=== PATIENT | male | born 1990 | race Caucasian/White ===

== ENCOUNTER 2016-12-05 18:14 | Emergency (ER) | payer SELFPAY ==
[2016-12-05 23:00] LABS: Basophils % (Auto) 0.9 % (0.0-1.8); Eosinophils % (Auto) 4.5 % (0.0-4.3); Hematocrit 49.5 % (35.5-45.6); Hemoglobin 16.1 gm/dl (11.8-15.2); Mean Corpuscular HGB Conc 33 % (32-34); Mean Corpuscular Hemoglobin 29 pg (28-32); Mean Corpuscular Volume 90 fl (84-94); Platelet Count 191 K/mm3 (140-440); Red Blood Count 5.52 M/mm3 (3.65-5.03); Red Cell Distribution Width 12.6 % (13.2-15.2); White Blood Count 5.9 K/mm3 (4.5-11.0)
[2016-12-05 23:11] LABS: Anion Gap 15 mmol/L; Blood Urea Nitrogen 17 mg/dL (9-20); Calcium 9.3 mg/dL (8.4-10.2); Carbon Dioxide 29 mmol/L (22-30); Chloride 99.6 mmol/L (98-107); Glucose 88 mg/dL (75-100); Potassium 4.6 mmol/L (3.6-5.0); Sodium 139 mmol/L (137-145)
[2016-12-05] MEDS ORDERED: NACL 0.9% 1000 ML 1,000 ML IV ONE (23:18)
[2016-12-06] MEDS ORDERED: NACL 0.9% 1000 ML 1,000 ML IV ONE (00:16)
[2016-12-06 01:04] LABS: Bilirubin,Urine NEG (Negative); Blood,Urine SM (Negative); Ketones,Urine NEG (Negative); Leukocyte Esterase,Urine NEG (Negative); Nitrite,Urine NEG (Negative); Protein,Urine <15 mg/dL mg/dL (Negative)
--- NOTE | 2016-12-06 01:40 | Emergency Department Report ---
- General Chief Complaint: Upper Respiratory Infection Stated Complaint: FLU LIKE SYMPTOMS Time Seen by Provider: 12/05/16 22:19 Source: patient Mode of arrival: Ambulatory Limitations: No Limitations - History of Present Illness Initial Comments: 26-year-old male past medical history none presents with complaint of anterior sinus congestion 1 week and sensation of feeling slightly dehydrated while at work today states he felt flushed momentarily. Patient is awake alert and oriented 3 not in acute distress otherwise. Denies chest pain nausea vomiting fevers chills. States he has had anterior nasal congestion for several days now. Patient speaking in full sentences awake alert and oriented 3 nontoxic- appearing. Denies earache denies sore throat denies productive cough. States he smokes occasionally. MD Complaint: nasal congestion Onset/Timin -: week(s) Severity: mild Quality: aching Consistency: intermittent Improves With: nothing Treatments Prior to Arrival: none - Related Data Previous Rx's Medication Instructions Recorded Last Taken Type Acetaminophen [Acetaminophen TAB] 500 mg PO Q6HR PRN #20 tablet 12/06/16 Unknown Rx Amoxicillin/K Clav Tab [Augmentin 1 tab PO Q12HR #14 tab 12/06/16 Unknown Rx 875 mg] Cetirizine HCl [ZyrTEC] 10 mg PO QDAY PRN #14 capsule 12/06/16 Unknown Rx Fluticasone [Flonase] 1 spray NS QDAY PRN #1 bottle 12/06/16 Unknown Rx Allergies Allergy/AdvReac Type Severity Reaction Status Date / Time No Known Allergies Allergy Verified 12/05/16 18:21 ED Review of Systems ROS: Stated complaint: FLU LIKE SYMPTOMS Other details as noted in HPI Constitutional: denies: chills, fever Eyes: denies: eye pain, eye discharge, vision change ENT: as per HPI, congestion. denies: ear pain, throat pain Respiratory: denies: cough, shortness of breath, wheezing Cardiovascular: denies: chest pain, palpitations Endocrine: no symptoms reported Gastrointestinal: denies: abdominal pain, nausea, diarrhea Genitourinary: denies: urgency, dysuria Musculoskeletal: denies: back pain, joint swelling, arthralgia Skin: denies: rash, lesions Neurological: denies: headache, weakness, paresthesias Psychiatric: denies: anxiety, depression Hematological/Lymphatic: denies: easy bleeding, easy bruising ED Past Medical Hx - Past Medical History Previous Medical History?: No - Surgical History Past Surgical History?: No - Social History Smoking Status: Never Smoker Substance Use Type: None - Medications Home Medications: Home Medications Medication Instructions Recorded Confirmed Last Taken Type Acetaminophen [Acetaminophen TAB] 500 mg PO Q6HR PRN #20 tablet 12/06/16 Unknown Rx Amoxicillin/K Clav Tab [Augmentin 1 tab PO Q12HR #14 tab 12/06/16 Unknown Rx 875 mg] Cetirizine HCl [ZyrTEC] 10 mg PO QDAY PRN #14 capsule 12/06/16 Unknown Rx Fluticasone [Flonase] 1 spray NS QDAY PRN #1 bottle 12/06/16 Unknown Rx ED Physical Exam - General Limitations: No Limitations General appearance: alert, in no apparent distress - Head Head exam: Present: atraumatic, normocephalic - Eye Eye exam: Present: normal appearance, PERRL, EOMI - ENT ENT exam: Present: mucous membranes moist - Expanded ENT Exam Expanded Ear exam: Present: normal external inspection Mouth exam: Present: normal external inspection Teeth exam: Present: normal inspection Throat exam: Positive: normal inspection - Neck Neck exam: Present: normal inspection - Respiratory Respiratory exam: Present: normal lung sounds bilaterally. Absent: respiratory distress - Cardiovascular Cardiovascular Exam: Present: regular rate, normal rhythm. Absent: systolic murmur, diastolic murmur, rubs, gallop - GI/Abdominal GI/Abdominal exam: Present: soft, normal bowel sounds - Rectal Rectal exam: Present: deferred - Extremities Exam Extremities exam: Present: normal inspection - Back Exam Back exam: Present: normal inspection - Neurological Exam Neurological exam: Present: alert, oriented X3, CN II-XII intact - Psychiatric Psychiatric exam: Present: normal affect, normal mood - Skin Skin exam: Present: warm, dry, intact, normal color. Absent: rash ED Course Vital Signs 12/05/16 12/06/16 18:18 02:03 Temperature 97.9 F Pulse Rate 50 L 67 Respiratory 16 18 Rate Blood Pressure 135/83 Blood Pressure 133/70 [Left] O2 Sat by Pulse 100 100 Oximetry ED Medical Decision Making - Lab Data Result diagrams: 12/05/16 22:21 12/05/16 22:21 - Medical Decision Making A/P: Sinusitis, dehydration 1-patient tolerating by mouth fluids, decrease in creatinine kinase with oral fluids and 1 L of normal saline 2-Tylenol, amoxicillin, nasal decongestants, antihistamines 3-follow-up with primary care doctor 4- I encouraged patient to remain well hydrated and drink plenty of fluids Critical care attestation.: If time is entered above; I have spent that time in minutes in the direct care of this critically ill patient, excluding procedure time. ED Disposition Clinical Impression: Elevated creatine kinase Sinusitis Qualifiers: Sinusitis location: frontal Chronicity: acute Recurrence: non-recurrent Qualified Code(s): J01.10 - Acute frontal sinusitis, unspecified Disposition: TO HOME OR SELFCARE Is pt being admited?: No Does the pt Need Aspirin: No Condition: Stable Instructions: Dehydration (ED), Sinusitis (ED) Prescriptions: Acetaminophen [Acetaminophen TAB] 500 mg PO Q6HR PRN #20 tablet PRN Reason: Pain Amoxicillin/K Clav Tab [Augmentin 875 mg] 1 tab PO Q12HR #14 tab Cetirizine HCl [ZyrTEC] 10 mg PO QDAY PRN #14 capsule PRN Reason: Congestion Fluticasone [Flonase] 1 spray NS QDAY PRN #1 bottle PRN Reason: Congestion Referrals: [facility] [place][Note 3] [Outside] - 3-5 Days [facility] [Outside] - 3-5 Days Forms: Work/School Release Form(ED)
[2016-12-06 02:04] VITALS: BP 133/70
== END 2016-12-06 02:04 | disposition home or self-care (01) ==
LOC: ED 18:14
DX: J01.10 Acute frontal sinusitis, unspecified (principal); R74.8 Abnormal levels of other serum enzymes
CPT/HCPCS: 36415; 80048; 81001; 82550; 85025; 96360; 96361; 99283; J7030